=== PATIENT | male | born 1970 | race American Indian/Alaskan Native ===

== ENCOUNTER 2018-12-24 05:23 | Emergency (ER) | payer OTHER ==
[~2018-12-24] VITALS: Ht 180.3 cm; Wt 94.3 kg
[2018-12-24 05:30] VITALS: TEMP 98.2
[2018-12-24 06:53] VITALS: BP 129/78
== END 2018-12-24 06:56 | disposition home or self-care (01) ==
LOC: ED 05:23
DX: S93.402A Sprain of unspecified ligament of left ankle, initial encounter (principal); X50.9XXA Other and unspecified overexertion or strenuous movements or postures, initial encounter
CPT/HCPCS: 99282; 99283

== ENCOUNTER 2020-09-26 07:32 | Emergency (ER) | payer OTHER ==
[~2020-09-26] VITALS: Ht 180.3 cm; Wt 96.6 kg
[2020-09-26 11:07] VITALS: BP 129/57; TEMP 98.3
== END 2020-09-26 11:07 | disposition home or self-care (01) ==
LOC: ED 07:32
DX: M70.32 Other bursitis of elbow, left elbow (principal); S50.362A Insect bite (nonvenomous) of left elbow, initial encounter; W57.XXXA Bitten or stung by nonvenomous insect and other nonvenomous arthropods, initial encounter; Y92.89 Other specified places as the place of occurrence of the external cause
CPT/HCPCS: 96372; 99283; J0696; J1885; J2930